=== PATIENT | female | born 1985 | race Hispanic/Latino ===

== ENCOUNTER 2018-08-26 14:26 | Emergency (ER) | payer SELFPAY ==
[~2018-08-26] VITALS: Ht 162.6 cm; Wt 90.0 kg
[2018-08-26] MEDS ORDERED: MEDDOSEPAK PO (15:11)
[2018-08-26] MEDS ORDERED: FLEXERIL5 MG PO (15:11)
[2018-08-26 15:20] VITALS: BP 132/92
== END 2018-08-26 15:20 | disposition home or self-care (01) | DRG 563 ==
LOC: ED 14:26
DX: S39.012A Strain of muscle, fascia and tendon of lower back, initial encounter (principal); M62.830 Muscle spasm of back